=== PATIENT | female | born 1995 | race Caucasian/White ===

== ENCOUNTER 2018-11-23 16:02 | Emergency (ER) | payer MEDICAID ==
[2018-11-23] MEDS ORDERED: Ketorolac 60 MG/2 ML SDV IM ONE (16:24)
[2018-11-23] MEDS ORDERED: Diphtheria,Pertussis(Acell),Tetanus Vaccine 0.5 ML Syringe IM ONE (16:24)
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
== END 2018-11-23 17:03 | disposition home or self-care (01) ==
LOC: MW.ED 16:02
DX: S90.812A Abrasion, left foot, initial encounter (principal); Z23 Encounter for immunization; V59.9XXA Occupant (driver) (passenger) of pick-up truck or van injured in unspecified traffic accident, initial encounter
CPT/HCPCS: 73620; 90471; 90715; 96372; 99284; J1885